=== PATIENT | female | born 1995 | race African-American/Black ===

== ENCOUNTER 2017-03-04 19:53 | Emergency (ER) | payer OTHER ==
[~2017-03-04] VITALS: Ht 165.1 cm; Wt 99.8 kg
[2017-03-04 20:55] VITALS: BP 137/87
== END 2017-03-04 21:44 | disposition home or self-care (01) ==
LOC: ER 19:57
DX: H61.21 Impacted cerumen, right ear (principal)

== ENCOUNTER 2018-04-02 08:43 | Emergency (ER) | payer OTHER ==
[~2018-04-02] VITALS: Ht 167.6 cm; Wt 78.0 kg
[2018-04-02 08:50] VITALS: BP 116/69
[2018-04-02] MEDS ORDERED: LIDOCAINE 1% HCL (LOCAL ANESTH.) INJ 20ML MDV ONE (10:23)
[2018-04-02] MEDS ORDERED: LIDOCAINE 1% (LOCAL ANESTH.) PF 5ml SDV IN ONE (10:30)
== END 2018-04-02 11:17 | disposition home or self-care (01) ==
LOC: ER 08:43
DX: L02.413 Cutaneous abscess of right upper limb (principal); E66.01 Morbid (severe) obesity due to excess calories; Z68.27 Body mass index [BMI] 27.0-27.9, adult
CPT/HCPCS: 10060; 99283; J2001

== ENCOUNTER 2018-07-14 08:00 | Emergency (ER) | payer OTHER ==
[~2018-07-14] VITALS: Ht 165.1 cm; Wt 110.2 kg
[2018-07-14 08:04] VITALS: BP 122/84
[2018-07-14] MEDS ORDERED: KETOROLAC TROMETH 60MG/2ML VIAL IM ONE (08:45)
== END 2018-07-14 09:30 | disposition home or self-care (01) ==
LOC: ER 08:00
DX: H61.21 Impacted cerumen, right ear (principal); G43.909 Migraine, unspecified, not intractable, without status migrainosus
CPT/HCPCS: 69209; 99283; J1885

== ENCOUNTER 2019-05-20 11:34 | Emergency (ER) | payer OTHER ==
[~2019-05-20] VITALS: Ht 165.1 cm; Wt 81.6 kg
[2019-05-20 11:45] VITALS: BP 117/71
== END 2019-05-20 12:44 | disposition home or self-care (01) ==
LOC: ER 11:34
DX: H61.21 Impacted cerumen, right ear (principal)

== ENCOUNTER 2019-08-10 17:21 | Emergency (ER) | payer OTHER ==
[~2019-08-10] VITALS: Ht 165.1 cm; Wt 77.1 kg
[2019-08-10 19:28] VITALS: BP 110/64
== END 2019-08-10 20:48 | disposition home or self-care (01) ==
LOC: ER 17:21
DX: R51 Headache (principal)
CPT/HCPCS: 70450

== ENCOUNTER 2020-01-01 11:24 | Emergency (ER) | payer BC, OTHER ==
[~2020-01-01] VITALS: Ht 165.1 cm; Wt 90.7 kg
[2020-01-01 11:56] VITALS: BP 102/78
== END 2020-01-01 18:46 | disposition left against medical advice (07) ==
LOC: ER 11:24
DX: M54.9 Dorsalgia, unspecified (principal); Z53.21 Procedure and treatment not carried out due to patient leaving prior to being seen by health care provider

== ENCOUNTER 2021-04-23 13:39 | Emergency (ER) | payer SELFPAY ==
[~2021-04-23] VITALS: Ht 165.1 cm; Wt 104.3 kg
[2021-04-23 13:42] VITALS: BP 133/85
== END 2021-04-23 14:37 | disposition home or self-care (01) ==
LOC: ER 13:39
DX: M72.2 Plantar fascial fibromatosis (principal); E66.01 Morbid (severe) obesity due to excess calories; Z90.89 Acquired absence of other organs; Z68.38 Body mass index [BMI] 38.0-38.9, adult

== ENCOUNTER 2022-12-03 01:45 | Emergency (ER) | payer SELFPAY ==
[~2022-12-03] VITALS: Ht 165.1 cm; Wt 121.1 kg
[2022-12-03 02:04] VITALS: BP 122/83
== END 2022-12-03 03:09 | disposition home or self-care (01) ==
LOC: ER 01:45
DX: J06.9 Acute upper respiratory infection, unspecified (principal); Z90.89 Acquired absence of other organs

== ENCOUNTER 2024-06-13 20:33 | Emergency (ER) | payer SELFPAY ==
[~2024-06-13] VITALS: Ht 165.1 cm; Wt 123.9 kg
[2024-06-13 21:20] VITALS: BP 134/79; PULSE 82; RESP 15; TEMP 97.9; O2SAT 97
[2024-06-14] MEDS ORDERED: METH4PAK3 PO (00:45)
[2024-06-14] MEDS: predniSONE 20 MG TAB PO ONE (01:21)
== END 2024-06-14 01:38 | disposition home or self-care (01) ==
LOC: ER 20:33
DX: H20.9 Unspecified iridocyclitis (principal); Z90.89 Acquired absence of other organs
CPT/HCPCS: 99283; J7512